=== PATIENT | male | born 1965 | race Caucasian/White ===

== ENCOUNTER 2020-12-20 07:37 | Outpatient (CLI) | payer BC, SELFPAY ==
--- NOTE | ~2020-12-20 | US_ITS ---
EXAMINATION: US right upper quadrant EXAM DATE: 12/20/2020 08:06 INDICATION: R74.8 - Abnormal levels of other serum enzymes. TECHNIQUE: Multiple grayscale and Doppler images of the abdomen right upper quadrant were obtained (b y a technologist who performed the scan) and subsequently reviewed. There is no prior study for kaiden colón. FINDINGS: The pancreatic head and body are normal in appearance. The pancreatic tail is not visualized. There is echogenic liver parenchyma, hepatic steatosis. There are no focal liver lesions identified. Th ere is no evidence of intrahepatic biliary duct dilation. Portal venous flow was seen in the hepatop edal, normal direction and has normal Doppler waveform. Approximately 3 cm right renal peripelvic cy st. Common bile duct measures 5 mm, which is normal. The gallbladder wall is normal in thickness, in cont racted state. No sonographic evidence of pericholecystic fluid. There is cholelithiasis. Technolo gist performing exam reports patient did not demonstrate sonographic Hyatt's sign. Please note that this sign is less reliable in patients who have received pain medication. IMPRESSION: Hepatic steatosis. Reviewed, dictated and finalized at location A. IMPRESSION: Hepatic steatosis.
== END 2020-12-20 07:38 | disposition home or self-care (01) ==
PROVIDERS: PCP Family Medicine; Visit Provider Family Medicine
DX: R74.8 Abnormal levels of other serum enzymes (principal); K76.0 Fatty (change of) liver, not elsewhere classified; K80.20 Calculus of gallbladder without cholecystitis without obstruction
CPT/HCPCS: 76705

== ENCOUNTER → 2021-01-25 00:10 | Outpatient (CLI) | payer BC, SELFPAY ==
[2021-01-25 19:56] LABS: SARS-CoV-2 RNA PCR Negative
== END ==
PROVIDERS: PCP Family Medicine; Visit Provider Internal Medicine Gastroenterology
DX: Z01.812 Encounter for preprocedural laboratory examination (principal); Z20.822 Contact with and (suspected) exposure to COVID-19
CPT/HCPCS: C9803; U0003; U0005

== ENCOUNTER 2021-01-28 02:38 | Day surgery (SDC) | payer BC, SELFPAY ==
[2021-01-16 14:41] VITALS: BMI 37.5
[2021-01-28 09:45] VITALS: BP 128/78; PULSE 88; RESP 20; TEMP 36.5; O2SAT 96
[2021-01-28] MEDS: LACTATED RINGERS 1,000 ML 150 ML IV CONT (09:53)
--- NOTE | 2021-01-28 10:03 | WPDGICN ---
Assessment and Plan Assessment and plan (1) Dysphagia: Code(s): R13.10 - Dysphagia, unspecified Status: Acute Assessment and Plan: Patient has difficulty swallowing over last several months. This is suspicious for esophageal narrowing. Plan is for EGD to assess more thoroughly. Likely on the basis of known acid reflux. (2) Gastro-esophageal reflux disease without esophagitis: Code(s): K21.9 - Gastro-esophageal reflux disease without esophagitis Status: Acute Assessment and Plan: Patient has a history of acid reflux and heartburn currently appears adequately trimmed controlled on Nexium which will continue. We will at reassess therapy at the time of endoscopy. (3) History of colon polyps: Code(s): Z86.010 - Personal history of colonic polyps Status: Acute Assessment and Plan: Patient has a history of colon polyps. Most recently assessed 2018. He has been advised to have follow-up exams at 5 year intervals in the future. Currently this is felt stable. GI Consult Note Consult date/time: 01/28/21 10:03 HPI: Masoud Campbell is a 55 year old male Presents for evaluation of difficulty swallowing. Patient reports difficulty swallowing over the last several months. Food will hang up in the mid substernal portion the chest. Typically this is bread and other gummy substances. Water seems to pass fairly well. Patient has a long history of heartburn and acid reflux. He states this is adequately controlled with Nexium. He denies any ongoing heartburn at this time. Symptoms of difficulty swallowing of progressed over the last few months. Patient denies any weight loss or bleeding. Patient's family history is noncontributory. Patient does have a past medical history of colon polyps most recently evaluated 2018. He anticipates checkups every 5 years. Review of Systems Review of Systems: All systems reviewed & are unremarkable except as noted in HPI and below PMFSH Past Medical History Medical History Adult BMI 38.0-38.9 kg/sq m Back muscle spasm Colon cancer screening Dysphagia Elevated liver enzymes Encounter for prostate cancer screening Fatty liver (12/20/20) fatty liver on ultrasound 12/20/2020 Gastro-esophageal reflux disease without esophagitis Hypersomnia Male erectile dysfunction, unspecified Mixed hyperlipidemia Family History Family History Mother Family history of chronic obstructive pulmonary disease Family history of heart disease in male family member before age 55 Other Diabetes mellitus Family history of allergic disorder Family history of lung cancer Family history of malignant neoplasm of male breast Family history of primary malignant neoplasm of liver Hypertension Social History Social History Smoking packs per day: 1 Smoking cigarettes per day: 20.0 Years smoked: 30 Smoking pack-years: 30.00 Smoking status: Former smoker Tobacco type: cigarettes Smoking end date: 09/06/17 Alcohol intake: current Alcohol use details: 1-2 TIMES PER MONTH Substance use: never Substance use type: does not use Living arrangements: with family Spiritual care concerns: No Meds Home Medications and Allergies Home Medications Medication Instructions Recorded Confirmed Type irbesartan 150 1 tablet PO DAILY #90 tablet 12/16/20 01/16/21 Rx mg-hydrochlorothiazide 12.5 mg tablet levothyroxine 175 mcg tablet 175 mcg PO DAILY #90 tablet 12/16/20 01/16/21 Rx esomeprazole magnesium [Nexium] 20 mg PO DAILY 01/16/21 01/16/21 History Allergies Allergy/AdvReac Type Severity Reaction Status Date / Time hydrocodone Allergy Unknown HIVES/ITCHI Verified 01/28/21 09:44 NG oxycodone Allergy Unknown HIVES/ITCHI Verified 01/28/21 09:4
--- NOTE | 2021-01-28 10:10 | WPDANESEPPF ---
Anes - Initial Pre Proc Eval Procedure: Operation Date: 01/28/21 11:15 Proposed Procedures p Esophagogastroduodenoscopy - Harman Montenegro MD Date/Time: 01/28/21 10:10 Surgeon: Harman Montenegro MD Pre Op Diagnosis: dysphagia, GERD Patient Data Age: 55 Gender: M Height: 6 ft 3 in Weight: 139.9 kg Last Vital Signs Temp 97.7 F 01/28/21 09:45 Pulse 88 01/28/21 09:45 Resp 20 01/28/21 09:45 BP 128/78 01/28/21 09:45 Pulse Ox 96 01/28/21 09:45 Allergies Allergy/AdvReac Type Severity Reaction Status Date / Time hydrocodone Allergy Unknown HIVES/ITCHI Verified 01/28/21 09:44 NG oxycodone Allergy Unknown HIVES/ITCHI Verified 01/28/21 09:44 NG strawberry Allergy Unknown HIVES Verified 01/28/21 09:44 Home Medications Medication Instructions Recorded Confirmed Type irbesartan 150 1 tablet PO DAILY #90 tablet 12/16/20 01/16/21 Rx mg-hydrochlorothiazide 12.5 mg tablet levothyroxine 175 mcg tablet 175 mcg PO DAILY #90 tablet 12/16/20 01/16/21 Rx esomeprazole magnesium [Nexium] 20 mg PO DAILY 01/16/21 01/16/21 History Patient hx anesthesia problems: none Family hx anesthesia problems: none PMFSH Past Medical History Medical History Adult BMI 38.0-38.9 kg/sq m Back muscle spasm Colon cancer screening Dysphagia Elevated liver enzymes Encounter for prostate cancer screening Fatty liver (12/20/20) fatty liver on ultrasound 12/20/2020 Gastro-esophageal reflux disease without esophagitis Hypersomnia Male erectile dysfunction, unspecified Mixed hyperlipidemia Family History Family History Mother Family history of chronic obstructive pulmonary disease Family history of heart disease in male family member before age 55 Other Diabetes mellitus Family history of allergic disorder Family history of lung cancer Family history of malignant neoplasm of male breast Family history of primary malignant neoplasm of liver Hypertension Social History Social History Smoking packs per day: 1 Smoking cigarettes per day: 20.0 Years smoked: 30 Smoking pack-years: 30.00 Smoking status: Former smoker Tobacco type: cigarettes Smoking end date: 09/06/17 Alcohol intake: current Alcohol use details: 1-2 TIMES PER MONTH Substance use: never Substance use type: does not use Living arrangements: with family Spiritual care concerns: No Anes - Eval Final PreProcedure Day of Procedure 01/28/21 10:10 Patient weight: obese Heart: regular rate and rhythm Lungs: clear to auscultation Airway: Mallampati scale class II Neurological: alert and oriented Last oral intake: >/= 8 hours ASA classification: III Emergent: no Anesthetic plan: proceed Anesthesia type and monitoring: general GIVS and standard monitoring Informed Consent: The patient's anesthetic plan and its attendant risks and benefits were discussed with the patient/family/POA. Questions were solicited and answers provided to the satisfaction of the patient/family/POA.
[2021-01-28] MEDS: BENZOCAINE (*SP) 60 ML SPRAY CAN (HURRICAINE) 1 SPRAY MUCOUS MEM (10:12)
[2021-01-28 10:29] VITALS: BP 120/70; PULSE 82; RESP 20; O2SAT 96
[2021-01-28 10:39] VITALS: BP 119/68; PULSE 81; RESP 19; O2SAT 95
[2021-01-28 10:49] VITALS: BP 128/73; PULSE 75; RESP 19; O2SAT 95
== END 2021-01-28 11:00 | disposition home or self-care (01) ==
PROVIDERS: PCP Family Medicine; Visit Provider Internal Medicine Gastroenterology
PROC: 0DJ08ZZ Inspection of Upper Intestinal Tract, Via Natural or Artificial Opening Endoscopic (ICD-10-PCS; CPT 43235; principal; 2021-01-28 11:15)
DX: R13.10 Dysphagia, unspecified (principal); K21.9 Gastro-esophageal reflux disease without esophagitis; K76.0 Fatty (change of) liver, not elsewhere classified; E78.2 Mixed hyperlipidemia; G47.10 Hypersomnia, unspecified; R74.8 Abnormal levels of other serum enzymes; Z87.891 Personal history of nicotine dependence
CPT/HCPCS: 43450; J2001; J2704; J7120

== ENCOUNTER 2021-06-26 12:26 | Outpatient (CLI) | payer BC, SELFPAY ==
--- NOTE | 2021-06-26 12:44 | ECHO_ITS ---
Patient Info Name: Masoud Campbell Age: 55 years : 1965 Gender: Male Ht: 75 in Wt: 300 lbs BSA: 2.73 m2 HR: 79 bpm BP: 121 / 89 mmHg Technical Quality: Poor Exam Date: 06/26/2021 1:03 PM Exam Location: [facility] Patient Status: Outpatient Admit Date: 06/26/2021 Staff Ordering Physician: Eduardo Escobedo DO Oceanography Professor: Sandie Pepper RDCS Attending Provider: Eduardo Escobedo DO Referring Physician: Gregg CERRATO; Exam Type: CA echo dop color flow w con Study Info Indications R53.83 - Other fatigue Contrast/Agitated Saline Contrast/Ag. Saline: Definity Amount: 3.00 ml Administered By: Felicia Kearns RN New IV Access: Antecubital Space and Right Site Condition: Site dressing applied, No extravasation and IV removed Reason for Poor Study: patient body habitus Summary 1. Technically suboptimal study due to poor sonographic images. 2. Definity contrast administered improved wall motion interpretation. 3. Left ventricular chamber dimension is normal. 4. Left ventricular systolic function is normal, estimated at 60-65%. 5. The left ventricular diastolic function is grade II diastolic dysfunction. 6. E/e' 8 is minimally elevated. 7. No pulmonary hypertension, estimated pulmonary arterial systolic pressure is 27 mmHg. 8. The aortic root size at the sinus of Valsalva is borderline dilated at 4.1 cm. Left Ventricle Definity contrast administered improved wall motion interpretation. E/e' 8 is minimally elevated. Technically suboptimal study due to poor sonographic images. Left ventricular chamber dimension is normal. Left ventricular systolic function is normal, estimated at 60-65%. The left ventricular diastolic function is grade II diastolic dysfunction. Right Ventricle Right ventricular chamber dimension is normal. Right ventricular systolic function is normal. Left Atria Left atrial chamber dimension is normal. Right Atria Right atrial chamber dimension is normal. Aortic Valve The aortic valve is probable trileaflet. There is no aortic valve stenosis. There is no aortic valve regurgitation. Pulmonic Valve There is no pulmonic regurgitation. Mitral Valve There is no mitral valve stenosis. There is no mitral valve regurgitation. Tricuspid Valve The tricuspid valve leaflets are not well visualized. There is no tricuspid valve regurgitation. No pulmonary hypertension, estimated pulmonary arterial systolic pressure is 27 mmHg. Pericardium/Pleural There is no pericardial effusion. Inferior Vena Cava Inferior vena cava is not well visualized. Aorta The aortic root size at the sinus of Valsalva is borderline dilated at 4.1 cm. Left Ventricular Outflow Tract Name Value Normal LVOT 2D LVOT Diameter 2.58 cm LVOT Doppler LVOT Peak Gradient 3 mmHg LVOT Mean Gradient 2 mmHg LVOT VTI 15.02 cm LVOT VTI/AV VTI Ratio 0.79 LVOT Stroke Volume 78.41 ml LVOT CO
== END 2021-06-26 12:27 | disposition home or self-care (01) ==
LOC: ANHCARD 12:27
PROVIDERS: PCP Family Medicine; Visit Provider Internal Medicine Cardiovascular Disease
DX: R53.83 Other fatigue (principal)
CPT/HCPCS: C8929

== ENCOUNTER 2021-08-04 07:55 | Outpatient (CLI) | payer BC, SELFPAY ==
--- NOTE | 2021-08-07 18:37 | WPDHOMESLEEP ---
Sleep Study - Home Unattended Date of Study: 08/04/21 <Kathia Lopez DO - Last Filed: 08/07/21 18:47> Ordering Provider: Eduardo Escobedo DO <Kathia Lopez DO - Last Filed: 08/07/21 18:47> Interpreting Provider: Kathia Lopez DO <Kathia Lopez DO - Last Filed: 08/07/21 18:47> Home Sleep Study Type: Apnea Link Air <Kathia Lopez DO - Last Filed: 08/07/21 18:47> Height: 1.88 m <Kathia Lopez DO - Last Filed: 08/07/21 18:47> Weight: 136.078 kg <Kathia Lopez DO - Last Filed: 08/07/21 18:47> Body Mass Index: 38.5 <Kathia Lopez DO - Last Filed: 08/07/21 18:47> Neck Circumference (inches): 18.5 <Kathia Lopez DO - Last Filed: 08/07/21 18:47> [place]: 7 <Kathia Lopez DO - Last Filed: 08/07/21 18:47> Reason for Sleep Study Daytime hypersomnia <Kathia Lopez DO - Last Filed: 08/07/21 18:47> Sleep History The patient is a 55-year-old male with GERD, hypertension, hypothyroidism fatty liver, hyperlipidemia and hypogonadism that had a home sleep test ordered by his marketing forecaster due to daytime sleepiness. the patient occasionally awakens from sleep short of breath. He occasionally awakens at night with heartburn, belching or cough. He constantly snores loud enough that others complain. He frequently has trouble sleeping when he has a cold. He occasionally wakes up gasping for air throughout the night. He occasionally has breathing problems at night observed by others. He denies sweating excessively at night. He rarely notices heart palpitations or irregular heartbeats during the night. He rarely falls asleep during the day and never while driving. He rarely has trouble at work due to sleepiness. He denies cataplexy and hypnagogic / hypnopompic hallucinations. He rarely feels unable to move when waking up or falling asleep. He rarely has nightmares. He rarely feels sad or depressed. He rarely has anxiety. He occasionally notices parts of his body jerk. He denies kicking throughout the night. He rarely has crawling and aching feelings in his legs. He denies leg pain during the night. He denies grinding his teeth during sleep awakening with morning jaw pain. He is occasionally bothered by pain during the day and awakened by pain during the night. He occasionally wakes up feeling stiff in the morning with sore and achy muscles. He goes to bed between midnight and 1:00 a.m. on both weekdays and weekends. He is unsure how long it takes him to fall asleep. He typically wakes up between 2 and 3 times per night to urinate. He can fall back asleep within 10 minutes. He will wake up between 4 and 5:00 a.m. on weekdays and between 6 and 7:00 a.m. weekends. He typically gets between 4 and 5 hours of sleep per night. He will stay in bed for a few minutes after awakening in the morning. He currently lives with his and child. He does not consume any caffeinated beverages within 2 hours of bedtime. He does not engage in physical exercise before bedtime. He will read and watch television before falling asleep. He will nap in the afternoon or the evening and is refreshing. He is a former smoker. He denies caffeine, alcohol and recreational drug use. <Kathia Lopez DO - Last Filed: 08/07/21 18:47> [facility] Past Medical History Medical History: Medical History Abnormal fasting glucose (05/08/21) fasting glucose 133 on 05/08/2021 Adult BMI 38.0-38.9 kg/sq m Back muscle spasm Chronic bilateral low back pain with bilateral sciatica Colon cancer screening Dysphagia normal EGD on 01/28/2021 Elevated liver enzymes Encounter for prostate cancer screening Fatigue Fatty liver (12/20/20) fatty liver on ultrasound 12/20/2020 Gastro-esophageal reflux disease without esophagitis Hypersomnia Hypogonadism male Male erectile dysfunction, unspec
[2021-08-07 18:46] VITALS: BMI 38.5
== END 2021-08-05 15:50 | disposition home or self-care (01) ==
LOC: ANHCSM 07:56
PROVIDERS: PCP Family Medicine; Visit Provider Internal Medicine Cardiovascular Disease
DX: G47.10 Hypersomnia, unspecified (principal); G47.33 Obstructive sleep apnea (adult) (pediatric)
CPT/HCPCS: 95806

== ENCOUNTER 2021-08-18 08:24 | Outpatient (CLI) | payer BC, SELFPAY ==
--- NOTE | 2021-09-08 12:59 | WPDSLEEPSTUD ---
Sleep Study Date of Study: 08/18/21 <Kathia Lopez DO - Last Filed: 09/08/21 13:58> Ordering Provider: Brando Pizano MD <Kathia Lopez DO - Last Filed: 09/08/21 13:58> Interpreting Physician: Kathia Lopez DO <Kathia Lopez, DO - Last Filed: 09/08/21 13:58> Sleep Study Type: CPAP Titration <Kathia Lopez DO - Last Filed: 09/08/21 13:58> Height: 1.91 m <Kathia Lopez DO - Last Filed: 09/08/21 13:58> Weight: 136.078 kg <Kathia Lopez DO - Last Filed: 09/08/21 13:58> Body Mass Index: 37.5 <Kathia Lopez DO - Last Filed: 09/08/21 13:58> Neck Circumference (inches): 19 <Kathia Lopez DO - Last Filed: 09/08/21 13:58> [place]: 8 <Kathia Lopez DO - Last Filed: 09/08/21 13:58> Reason for Sleep Study The patient had a HSAT on 08/04/2021 that showed an AHI of 80.7 which is consistent with severe sleep apnea. The patient had desaturations down to 65%. The patient spent 41 minutes with an oxygen saturation less than 88%. Due to the severity of his sleep apnea and the time spent with an SpO2 <88%, I recommended that the patient be scheduled for a PAP Titration study. <Kathia Lopez DO - Last Filed: 09/08/21 13:58> Sleep History The patient is a 55-year-old male with GERD, hypertension, hypothyroidism fatty liver, hyperlipidemia and hypogonadism that had a home sleep test ordered by his bosom presser due to daytime sleepiness. the patient occasionally awakens from sleep short of breath. He occasionally awakens at night with heartburn, belching or cough. He constantly snores loud enough that others complain. He frequently has trouble sleeping when he has a cold. He occasionally wakes up gasping for air throughout the night. He occasionally has breathing problems at night observed by others. He denies sweating excessively at night. He rarely notices heart palpitations or irregular heartbeats during the night. He rarely falls asleep during the day and never while driving. He rarely has trouble at work due to sleepiness. He denies cataplexy and hypnagogic / hypnopompic hallucinations. He rarely feels unable to move when waking up or falling asleep. He rarely has nightmares. He rarely feels sad or depressed. He rarely has anxiety. He occasionally notices parts of his body jerk. He denies kicking throughout the night. He rarely has crawling and aching feelings in his legs. He denies leg pain during the night. He denies grinding his teeth during sleep awakening with morning jaw pain. He is occasionally bothered by pain during the day and awakened by pain during the night. He occasionally wakes up feeling stiff in the morning with sore and achy muscles. He goes to bed between midnight and 1:00 a.m. on both weekdays and weekends. He is unsure how long it takes him to fall asleep. He typically wakes up between 2 and 3 times per night to urinate. He can fall back asleep within 10 minutes. He will wake up between 4 and 5:00 a.m. on weekdays and between 6 and 7:00 a.m. weekends. He typically gets between 4 and 5 hours of sleep per night. He will stay in bed for a few minutes after awakening in the morning. He currently lives with his and child. He does not consume any caffeinated beverages within 2 hours of bedtime. He does not engage in physical exercise before bedtime. He will read and watch television before falling asleep. He will nap in the afternoon or the evening and is refreshing. He is a former smoker. He denies caffeine, alcohol and recreational drug use <Kathia Lopez DO - Last Filed: 09/08/21 13:58> [facility] Past Medical History Medical History: Medical History Abnormal fasting glucose (05/08/21) fasting glucose 133 on 05/08/2021 Adult BMI 38.0-38.9 kg/sq m Back muscle spasm Chronic bilateral low back pain with bilate
[2021-09-08 13:01] VITALS: BMI 37.5
== END 2021-08-19 06:59 | disposition home or self-care (01) ==
LOC: ANHCSM 08:25
PROVIDERS: PCP Family Medicine; Visit Provider Family Medicine
DX: G47.33 Obstructive sleep apnea (adult) (pediatric) (principal)
CPT/HCPCS: 95811

== ENCOUNTER 2024-08-14 08:04 | Outpatient (CLI) | payer BC, SELFPAY ==
--- NOTE | ~2024-08-14 | NM_ITS ---
EXAMINATION: NM bolivar stress w perfusion DATE: 08/14/2024 11:09 INDICATION: Chest pain TECHNIQUE: Rest images were obtained following intravenous administration of 10.7 mCi Tc99m tetrofosm in (Myoview). The patient was infused intravenously with Lexiscan (Regadenoson). Then, 32.0 mCi Tc99m tetrofosmin (Myoview) was administered intravenously, and stress images were obtained, initially in the supine position with repeat post stress images obtained in the prone position. Data was reconstru cted into short axis and horizontal and vertical long axis SPECT images. Gated SPECT images were also obtained. COMPARISON: None. FINDINGS: There is no definite reversible or fixed perfusion abnormality to suggest ischemia or infar ction. There is normal left ventricular chamber size, wall motion and ejection fraction. Left ventr icular ejection fraction measures 69%. IMPRESSION: 1. Normal myocardial perfusion at rest and during stress. 2. Left ventricular ejection fraction measuring 69%. Reviewed, dictated and finalized at location A. STMAS BELL RINGER
--- NOTE | 2024-08-14 08:58 | EST_ITS ---
Patient Info Name: Masoud Campbell Age: 58 years : 1965 Gender: Male Ht: 74 in Wt: 300 lbs BSA: 2.72 m2 HR: 67 bpm BP: 139 / 88 mmHg Exam Date: 08/14/2024 9:42 AM Exam Location: [facility] Patient Status: Outpatient Admit Date: 08/14/2024 Staff Ordering Physician: Eduardo Escobedo DO Attending Provider: Eduardo Escobedo DO Exercise Technologist: Anderson CROKCER STATISTICAL MACHINE MECHANIC Exercise Physician: Eduardo Escobedo DO Exam Type: CA stress bolivar w NM Study Info A regadenoson stress test was performed. Summary 1. 1. Negative lexiscan stress test for ischemic ST changes by ECG criteria. 2. 2. Stable hemodynamics throughout the test. 3. 3. Nuclear scan to follow and will be reported separately. Please correlate with it. 4. 4. Patient informed of the above results. Protocol: Lexiscan Stress ECG Details Stage: REST Duration (min): 4 min : 7 sec HR (bpm): 64 SBP (mmHg): --- DBP (mmHg): --- Stage: REST Duration (min): 8 min : 33 sec HR (bpm): 64 SBP (mmHg): 139 DBP (mmHg): 88 Stage: REST Duration (min): 12 min : 2 sec HR (bpm): 67 SBP (mmHg): 139 DBP (mmHg): 88 Stage: STAGE 1 Duration (min): 1 min : 0 sec HR (bpm): 95 SBP (mmHg): 152 DBP (mmHg): 94 Stage: RECOVERY Duration (min): 0 min : 57 sec HR (bpm): 81 SBP (mmHg): 152 DBP (mmHg): 94 Rest HR: 67 bpm Peak HR: 95 bpm Rest Sys BP: 139 mmHg Peak Sys BP: 152 mmHg Max Pred HR: 164 bpm % Max Pred HR: 58 % Target HR: 139 bpm Max RPP: 14,440 bpm*mmHg Termination Reason: Completed protocol Cardiac Symptoms: Shortness of breath Total Time: 1 min : 0 sec Rest Simons BP: 88 mmHg Peak Simons BP: 94 mmHg Total Dose: 0.4 mg Resting ECG Sinus rhythm. Stress ECG No ST changes. Arrhythmias None. Report Signatures
== END 2024-08-14 08:05 | disposition home or self-care (01) ==
PROVIDERS: PCP Family Medicine; Visit Provider Internal Medicine Cardiovascular Disease
DX: R07.9 Chest pain, unspecified (principal)
CPT/HCPCS: 78452; 93017; A9502; J2785